=== PATIENT | female | born 1995 | race Caucasian/White ===

== ENCOUNTER 2018-08-23 23:15 | Inpatient (IN) | payer OTHER ==
[~2018-08-23] VITALS: Ht 170.2 cm; Wt 82.0 kg
[2018-08-23] MEDS ORDERED: LACTATED RINGERS 1,000 ML IV SCH (23:28)
[2018-08-23] MEDS ORDERED: D5%-LACTATED RINGERS 1,000 ML IV SCH (23:28)
[2018-08-23] MEDS ORDERED: OXYTOCIN 30U/ 0.9% NaCL 500ML 500 ML IV ONE (23:28)
[2018-08-23] MEDS ORDERED: OXYTOCIN 30U/ 0.9% NaCL 500ML 500 ML IV PRN (23:28)
[2018-08-23] MEDS ORDERED: FENTANYL PF 100 MCG/2ML IVPush PRN (23:30)
[2018-08-23] MEDS ORDERED: ONDANSETRON 2MG/ML, 2ML IVPush PRN (23:30)
[2018-08-23] MEDS ORDERED: TERBUTALINE 1 MG/ML, 1ML IVPush PRN (23:30)
[2018-08-23] MEDS ORDERED: CALCIUM CARBONATE 500 MG TAB.CHEW PO PRN (23:30)
[2018-08-23] MEDS ORDERED: FENTANYL PF 100 MCG/2ML IV PRN (23:30)
[2018-08-23] MEDS ORDERED: LIDOCAINE/PF 1%, 30ML ONE (23:53)
[2018-08-23] MEDS ORDERED: NEWBORN KIT ONE (23:53)
[2018-08-23] MEDS ORDERED: OXYTOCIN 30U/ 0.9% NaCL 500ML 500 ML ONE (23:53)
[2018-08-24 00:30] LABS: MEAN PLATELET VOLUME 13.2 fL (7.4-10.4)
[2018-08-24] MEDS ORDERED: CALCIUM CARBONATE 500 MG TAB.CHEW ONE (00:50)
[2018-08-24 01:00] VITALS: BP 119/75
[2018-08-24 01:08] LABS: MD YES; MEAN CORPUSCULAR HEMOGLOBIN 32.4 pg (27.0-34.8); MEAN CORPUSCULAR HGB CONC 34.2 g/dL (32.4-35.8); MEAN CORPUSCULAR VOLUME 94.8 fL (80-100); PLATELET COUNT 177 x10^3/uL (130-400); RED BLOOD COUNT 4.19 x10^6/uL (3.82-5.3); RED CELL DISTRIBUTION WIDTH 13.5 % (9.6-15.2)
[2018-08-24 01:12] LABS: EOS#(MANUAL) 0.13 x10^3/uL (0.0-0.4); EOS% (MANUAL) 1 % (1-7); LYMPH#(MANUAL) 2.39 x10^3/uL (1-3.4); LYMPHS% (MANUAL) 18 % (22-44); METAMYELOCYTES# (MANUAL) 0.13 x10^3/uL (0-0); METAMYELOCYTES% (MANUAL) 1 % (0-1); MONOS#(MANUAL) 0.13 x10^3/uL (0.3-2.7); MONOS% (MANUAL) 1 % (2-9); SEG#(MANUAL) 10.37 x10^3/uL (1.8-6.8); SEGS% (MANUAL) 78 % (42-75)
[2018-08-24 01:13] LABS: REACTIVE LYMPHS # (MANUAL) 0.13 x10^3/uL (0-0); REACTIVE LYMPHS % (MANUAL) 1 % (0-0)
[2018-08-24 01:14] LABS: <PLATELET ESTIMATE> ADEQUATE; <RBC MORPHOLOGY> NORMAL; GIANT PLATELETS 1+
[2018-08-24] MEDS ORDERED: OXYTOCIN 30U/ 0.9% NaCL 500ML 500 ML ONE (04:19)
[2018-08-24] MEDS ORDERED: FENTANYL PF 100 MCG/2ML ONE ×2 (04:31→05:55)
[2018-08-24] MEDS ORDERED: OXYcodone/APAP 5/325MG TABLET ONE (05:55)
[2018-08-24] MEDS ORDERED: OXYcodone/APAP 5/325MG TABLET PO PRN (06:00)
[2018-08-24] MEDS ORDERED: FENTANYL PF 100 MCG/2ML IVPush PRN (06:00)
[2018-08-24] MEDS: OXYTOCIN 30U/ 0.9% NaCL 500ML 500 ML IV SCH ×2 (06:26→16:26)
[2018-08-24] MEDS ORDERED: METHYLERGONOVINE 0.2 MG/ML IM PRN (06:30)
[2018-08-24] MEDS ORDERED: MISOPROSTOL 200 MCG TABLET PR PRN (06:30)
[2018-08-24] MEDS ORDERED: HYDROcodone/APAP 5/325 TABLET PO PRN ×2 (06:30)
[2018-08-24] MEDS ORDERED: ACETAMINOPHEN 325 MG TABLET PO PRN ×2 (06:30)
[2018-08-24 09:05] VITALS: BP 117/73
[2018-08-24] MEDS: DOCUSATE 100 MG CAPSULE PO PRN ×2 (10:32→20:07)
[2018-08-24] MEDS: IBUPROFEN 600 MG TABLET PO PRN ×2 (10:32→16:38)
[2018-08-24] MEDS: PRENATAL VIT/IRON/FA 1 EACH TABLET PO SCH (10:35)
[2018-08-24 12:15] VITALS: BP 116/71
[2018-08-24 15:10] LABS: BASOPHILS # (AUTO) 0.04 x10^3/uL (0-0.1); BASOPHILS % (AUTO) 0 % (0-1); EOSINOPHILS # (AUTO) 0.02 x10^3/uL (0-0.4); EOSINOPHILS % (AUTO) 0 % (1-7); LYMPHOCYTES # (AUTO) 1.34 x10^3/uL (1-3.4); LYMPHOCYTES % (AUTO) 6 % (22-44); MD SCAN; MEAN CORPUSCULAR HGB CONC 33.6 g/dL (32.4-35.8); MEAN CORPUSCULAR VOLUME 95.1 fL (80-100); MEAN PLATELET VOLUME 10.4 fL (7.4-10.4); MONOCYTES # (AUTO) 1.69 x10^3/uL (0.2-0.8); MONOCYTES % (AUTO) 8 % (2-9); NEUTROPHILS # (AUTO) 18.78 x10^3/uL (1.8-6.8); NEUTROPHILS % (AUTO) 86 % (42-75); PLATELET COUNT 134 x10^3/uL (130-400); RED BLOOD COUNT 3.46 x10^6/uL (3.82-5.3); RED CELL DISTRIBUTION WIDTH 13.4 % (9.6-15.2)
[2018-08-24 16:00] VITALS: BP 129/89
[2018-08-24 20:00] VITALS: BP 117/76
[2018-08-25] VITALS: BP 114/77
[2018-08-25 04:00] VITALS: BP 112/72
[2018-08-25] MEDS: DOCUSATE 100 MG CAPSULE PO PRN (07:29)
[2018-08-25] MEDS: PRENATAL VIT/IRON/FA 1 EACH TABLET PO SCH (07:29)
[2018-08-25] MEDS: IBUPROFEN 600 MG TABLET PO PRN (07:29)
[2018-08-25] MEDS ORDERED: HYDR-3240 PO (12:49)
[2018-08-25] MEDS ORDERED: IBUP-1222 PO (12:51)
== END 2018-08-25 14:18 | disposition home or self-care (01) | DRG 807 ==
LOC: LDOP 23:15 → LDIP 23:47 → 2NW 08-24 08:49
PROVIDERS: ADMIT Obstetrics & Gynecology; ATTEND Obstetrics & Gynecology
PROC: 10E0XZZ Delivery of Products of Conception, External Approach (ICD-10-PCS; principal; 2018-08-24)
PROC: 0HQ9XZZ Repair Perineum Skin, External Approach (ICD-10-PCS; 2018-08-24)
PROC: 0W8NXZZ Division of Female Perineum, External Approach (ICD-10-PCS; 2018-08-24)
PROC: 3E033VJ Introduction of Other Hormone into Peripheral Vein, Percutaneous Approach (ICD-10-PCS; 2018-08-24)
DX: O48.0 Post-term pregnancy (principal); Z37.0 Single live birth; Z3A.40 40 weeks gestation of pregnancy; O70.0 First degree perineal laceration during delivery
CPT/HCPCS: 36415; J7121; 85025; 86850; 86900; G0378; J3010; J2590; J7120